=== PATIENT | male | born 1985 | race Caucasian/White ===

== ENCOUNTER 2019-09-09 14:50 | Emergency (ER) | payer MEDICAID ==
[~2019-09-09] VITALS: Ht 177.8 cm; Wt 72.6 kg
--- NOTE | 2019-09-09 15:04 | NUR ---
CAME IN FOR L EAR PARTIAL HEARING LOSS NOTICED TODAY. PT APPEARS ANXIOUS ALSO C/O NECK PAIN X 3 WEEKS. TO ER BED 9, HOOKED TO LOOM BLOWER AND POX, CHANGED TO HOSP GOWN, WARM BLANKET PROVIDED, PATIENT AO X 4, BREATHING EVEN AND UNLABORED, NAD NOTED. AWAITING MD CERON
--- NOTE | 2019-09-09 15:30 | NUR ---
JACQUELIN MACK AT BEDSIDE
--- NOTE | 2019-09-09 16:22 | NUR ---
DIVISION MANAGER AT BEDSIDE
--- NOTE | 2019-09-09 17:32 | NUR ---
Patient discharged to home in stable condition. Written and verbal after care instructions given. Patient verbalizes understanding of instruction.
[2019-09-09 17:34] VITALS: BP 131/85
== END 2019-09-09 17:35 | disposition home or self-care (01) ==
LOC: ER 14:56
DX: H69.82 Other specified disorders of Eustachian tube, left ear (principal); J45.909 Unspecified asthma, uncomplicated; L98.8 Other specified disorders of the skin and subcutaneous tissue
CPT/HCPCS: 71045-TC

== ENCOUNTER 2019-09-11 20:17 | Emergency (ER) | payer MEDICAID ==
[~2019-09-11] VITALS: Ht 177.8 cm; Wt 70.3 kg
[2019-09-11 20:43] VITALS: BP 134/80
--- NOTE | 2019-09-11 20:46 | NUR ---
URINE COLLECTED AND SENT TO LAB
[2019-09-11 20:56] LABS: APPEARANCE,URINE Clear (CLEAR); BILIRUBIN,URINE Negative (NEGATIVE); BLOOD, URINE Negative Ery/uL (NEGATIVE); COLOR,URINE Yellow (YELLOW); KETONES,URINE Negative (NEGATIVE); LEUKOCYTE ESTERASE ,URINE Negative (NEGATIVE); NITRITE, URINE Negative (NEGATIVE); PH,URINE 7.5 (5.0-8.0); PROTEIN,URINE Negative (NEGATIVE); UGLUCOSE Negative (NEGATIVE); UROBILINOGEN,URINE 0.2 EU/dL (0.2)
[2019-09-11 21:07] LABS: BASOPHILS % (AUTO) 0.9 % (0.0-2.0); EOSINOPHILS % (AUTO) 2.8 % (0.0-6.0); HEMATOCRIT 44 % (39-51); HEMOGLOBIN 15.2 g/dL (13.5-17.5); LYMPHOCYTES # (AUTO) 1.3 /CMM (0.8-4.8); LYMPHOCYTES % (AUTO) 29.1 % (20.0-44.0); MEAN CORPUSCULAR HGB CONC 35 g/dl (31.0-36.0); MEAN CORPUSCULAR VOLUME 82 fL (80-96); MONOCYTES # (AUTO) 0.4 /CMM (0.1-1.30); MONOCYTES % (AUTO) 8.4 % (2.0-12.0); NEUTROPHILS # (AUTO) 2.6 /CMM (1.8-8.9); NEUTROPHILS % (AUTO) 58.8 % (43.0-81.0); PLATELET COUNT (AUTO) 219 /CMM (150-450); RED BLOOD CELL COUNT(AUTO) 5.39 MIL/uL (4.5-6.0); WHITE BLOOD COUNT (AUTO) 4.4 K/uL (4.3-11.0)
[2019-09-11 21:17] LABS: CALCIUM, SERUM 9.1 mg/dL (8.5-10.1); CREATININE 1.2 mg/dL (0.6-1.3); POTASSIUM 3.6 mmol/L (3.5-5.1)
[2019-09-11 21:23] LABS: ALBUMIN 4.5 g/dL (3.4-5.0); BILIRUBIN,TOTAL 0.5 mg/dL (0.2-1.0); TOTAL PROTEIN, SERUM 8.1 g/dL (6.4-8.2)
--- NOTE | 2019-09-11 22:00 | NUR ---
Patient discharged to home in stable condition. Written and verbal after care instructions given. Patient verbalizes understanding of instruction. Pt ambulatory with a steady gait
[2019-09-11 22:12] LABS: THYROID STIMULATING HORMONE 1.45 uIU/mL (0.358-3.74)
== END 2019-09-11 22:01 | disposition home or self-care (01) ==
LOC: ER 20:17
DX: F41.9 Anxiety disorder, unspecified (principal); R35.0 Frequency of micturition
CPT/HCPCS: 36415; 80053-TC; 81000-TC; 84443-TC; 85025-TC

== ENCOUNTER 2020-05-20 21:36 | Emergency (ER) | payer MEDICAID ==
[~2020-05-20] VITALS: Ht 175.3 cm; Wt 72.6 kg
--- NOTE | 2020-05-20 22:19 | NUR ---
PATIENT CAME TO ER BED 4 C/O NON RADIATING MIDEPIGASTRIC PAIN THAT HAS BEEN COMING AND GOING ALONG WITH LEFT FLANK PAIN THAT HAS BEEN COMING AND GOING SINCE AUGUST 2019. PATIENT CURRENTLY HAS A 2/10 DULL PAIN ON THE BOTH THE MID STERNAL AND LEFT FLANK PAIN. AAOX4. NO SOB .BREATHING EVENLY AND UNLABORED ON ROOM AIR. CONNECTED TO THE MONITOR.
[2020-05-20] MEDS ORDERED: ASPIRIN 81 MG TAB.CHEW PO ONE (22:30)
[2020-05-20] MEDS ORDERED: PANTOPRAZOLE 40 MG TABLET.DR PO ONE ×2 (22:34→23:00)
[2020-05-20] MEDS ORDERED: LIDOCAINE VISCOUS 2% UD 15 ML UDC ONE (22:34)
[2020-05-20] MEDS ORDERED: MAG HYDROX/AL HYDROX/SIMETH 30 ML UDC ONE (22:34)
[2020-05-20] MEDS ORDERED: DICYCLOMINE HCL 10 MG CAPSULE PO ONE (22:34)
[2020-05-20] MEDS ORDERED: MAG HYDROX/AL HYDROX/SIMETH 30 ML UDC PO ONE (23:00)
[2020-05-20] MEDS ORDERED: DICYCLOMINE HCL 10 MG/5 ML UDC PO ONE (23:00)
[2020-05-20] MEDS ORDERED: LIDOCAINE VISCOUS 2% UD 15 ML UDC MM ONE (23:00)
[2020-05-20] MEDS ORDERED: ASPIRIN 81 MG TAB.CHEW ONE (23:20)
--- NOTE | 2020-05-20 23:33 | NUR ---
Patient discharged to home in stable condition. Written and verbal after care instructions given. Patient verbalizes understanding of instruction.
[2020-05-20 23:36] VITALS: BP 125/76
== END 2020-05-20 23:37 | disposition home or self-care (01) ==
LOC: ER 21:41
DX: K21.9 Gastro-esophageal reflux disease without esophagitis (principal); R07.89 Other chest pain
CPT/HCPCS: 71045-TC

== ENCOUNTER 2022-03-02 23:28 | Emergency (ER) | payer MEDICAID ==
[~2022-03-02] VITALS: Ht 177.8 cm; Wt 70.3 kg
[2022-03-03 01:15] VITALS: BP 109/68
[2022-03-03] MEDS ORDERED: LORAZEPAM 1 MG TABLET PO ONE (02:00)
[2022-03-03] MEDS ORDERED: LORAZEPAM 1 MG TABLET ONE (02:07)
== END 2022-03-03 03:26 | disposition home or self-care (01) ==
LOC: ER 23:30
DX: F41.0 Panic disorder [episodic paroxysmal anxiety] (principal); K21.9 Gastro-esophageal reflux disease without esophagitis